=== PATIENT | male | born 1950 | race Caucasian/White ===

== ENCOUNTER 2018-07-29 09:16 | Inpatient (IN) | payer MEDICARE, BC ==
[2018-07-23 13:08] LABS: BASOPHILS # (AUTO) 0.1 X10'3 (0-0.2); BASOPHILS % (AUTO) 0.8 % (0-1); EOSINOPHILS # (AUTO) 0.5 X10'3 (0-0.9); LYMPHOCYTES # (AUTO) 1.9 X10'3 (1.1-4.8); LYMPHOCYTES % (AUTO) 18.2 % (21-51); MEAN CORPUSCULAR HGB CONC 33.3 g/dL (33.0-36.5); MEAN CORPUSCULAR VOLUME 87.1 FL (78-98); MEAN PLATELET VOLUME 8.3 FL (7.4-10.4); MONOCYTES # (AUTO) 0.6 X10'3 (0-0.9); MONOCYTES % (AUTO) 6.2 % (2-12); NEUTROPHILS # (AUTO) 7.2 X10'3 (1.8-7.7); NEUTROPHILS % (AUTO) 69.8 % (42-75); PRE OP HEMATOCRIT 44.1 % (42.0-52.0); PRE OP HEMOGLOBIN 14.7 g/dL (14.0-17.9); PRE OP PLATELET COUNT 199 X10'3 (140-440); RED BLOOD COUNT 5.06 X10'6 (4.70-6.10); RED CELL DISTRIBUTION WIDTH 14.7 % (11.5-14.5)
[2018-07-23 13:25] LABS: ALBUMIN 3.7 G/DL (3.4-5.0); ALKALINE PHOSPHATASE 93 IU/L (46-116); BLOOD UREA NITROGEN 22 MG/DL (7-18); CALCIUM 9.2 MG/DL (8.5-10.1); CHLORIDE 109 MMOL/L (99-107); PRE OP ALT 26 U/L (30-65); PRE OP ANION GAP 9 (8-16); PRE OP AST 16 U/L (10-37); PRE OP BILIRUB, TOTAL 0.3 MG/DL (0.0-1.0); PRE OP GLUCOSE 90 MG/DL (70-104); PRE OP POTASSIUM 3.8 MMOL/L (3.4-5.1); PRE OP SODIUM 141 MMOL/L (135-145); TOTAL CARBON DIOXIDE 23.5 MMOL/L (24-32); TOTAL PROTEIN 7.3 G/DL (6.4-8.2); eGFR 74 ML/MIN
[~2018-07-29] VITALS: Ht 188 cm; Wt 116.5 kg
[2018-07-29] VITALS (17 sets, daily range): BP systolic 120–171; BP diastolic 57–98
[~2018-07-29 09:16] MED LIST: ALBU8.5H8 IH; ASPI-529 PO; FLO0.4C PO; LISI-600 PO; VANCOMYCIN INJ 1000 MG in NORMAL SALINE 250ml IV.SOLN IV ONE; albuterol 2.5 MG/3 ML nebule NEB ONE; ceFAZolin 2gm in dextrose, iso 100 ML IV ONE; famotidine 20mg tablet PO ONE; ringers solution, lacted 1,000 ML IV SCH; tranexamic acid inj. 1,100 MG in normal saline 100ml IV soln 100 ML IV ONE
[2018-07-29] MEDS ORDERED: tranexamic acid inj. 1,100 MG in normal saline 100ml IV soln 100 ML IV ONE ×2 (09:30→20:20)
[2018-07-29] MEDS ORDERED: tetracaine 1% (10mg/ml) pres. free inj. ONE (14:42)
[2018-07-29] MEDS ORDERED: fentaNYL/PF 50MCG/1 ML 2ML syringe ONE (14:44)
[2018-07-29] MEDS ORDERED: MIDAZolam 5mg/5ml vial ONE (14:45)
[2018-07-29] MEDS ORDERED: ketorolac trometh. 30mg/ml inj. ONE (15:20)
[2018-07-29] MEDS ORDERED: ROPIVAcaine 0.5% (5mg/ml) 30ml vial ONE ×2 (15:20→15:39)
[2018-07-29] MEDS ORDERED: ringers solution, lacted 1,000 ML IV SCH (16:07)
[2018-07-29] MEDS ORDERED: morphine 4 MG/ML inj SYRINge IV PRN (16:10)
[2018-07-29] MEDS ORDERED: HYDROmorphone inj. 0.5 MG/0.5 ML DISP.SYRIN IV PRN ×2 (16:10→17:20)
[2018-07-29] MEDS ORDERED: ondansetron/PF 4mg/2ml inj IV PRN ×2 (16:10→17:20)
[2018-07-29] MEDS ORDERED: propofol inj 20 ML IV ONE ×2 (16:17)
[2018-07-29] MEDS ORDERED: bisacodyl 10mg suppository rectal RC PRN (17:20)
[2018-07-29] MEDS ORDERED: oxyCODONE IR 5mg (immed. release) tablet PO PRN ×2 (17:20)
[2018-07-29] MEDS ORDERED: diphenhydrAMINE 25mg capsule PO PRN ×2 (17:20)
[2018-07-29] MEDS ORDERED: magnesium hydroxide 30ml (MOM) UD suspension PO PRN (17:20)
[2018-07-29] MEDS ORDERED: acetaminophen 325mg tablet PO PRN (17:20)
[2018-07-29] MEDS ORDERED: HYDROmorphone 1 mg/ml syringe IV PRN (17:20)
[2018-07-29] MEDS ORDERED: dexamethasone sod phosphate 4mg/ml inj. ONE (17:40)
[2018-07-29] MEDS ORDERED: LIDOcaine 1%/PF 5ML 10 MG/ML VIAL ONE (17:40)
--- NOTE | 2018-07-29 17:42 | NUR ---
Received from OR via , accompanied by Anesthesiologist DR. ROD and report given by Anesthesiolgist. PATIENT ARRIVED TO PACU ON ORTHO BED, A&OX4, VSS CHARTED, 100% ON 2L NC, KEN DRESSING TO RIGHT KNEE WITH ON-Q, ICE PACK, SCD'S IN PLACE, 18 GAUGE PIV NOTED TO LEFT WRIST, IVF INFUSING ORDERED. WILL CONTINUE TO MONITOR.
--- NOTE | 2018-07-29 17:43 | NUR ---
SENSATION NOTED AT L1.
[2018-07-29] MEDS ORDERED: albuterol 2.5 MG/3 ML nebule NEB PRN (17:50)
[2018-07-29] MEDS: ROPIVAcaine 0.2%/PF PAIN PUMP 550 ML IJ SCH (18:07)
--- NOTE | 2018-07-29 18:09 | NUR ---
HEARING AIDES NOTED TO BILAT EAR
--- NOTE | 2018-07-29 18:52 | NUR ---
PATIENT TRANSFER CRITERIA MET. REPORT CALLED TO FOOD SERVICE COUNTER CLERK, ALL QUESTIONS AND CONCERNS ADDRESSED. VSS CHARTED, PATIENT A&OX4, SENSATION NOTED AT L1. KEN DRESSING TO RIGHT KNEE CDI, ON-Q PUMP INFUSING ORDERED. 18 GAUGE PIV INFUSING IVF ORDERED. SCD'S IN PLACE. TRANSFER TO [facility] [place] WITH ALL PERSONAL BELONGINGS.
[2018-07-29] MEDS ORDERED: vancomycin/NS 1 GM ADD-VANTAGE 250 ML IV SCH (20:00)
[2018-07-29] MEDS: potassium cl 20mEq in 1/2 NS 1,000 ML IV SCH (20:49)
[2018-07-29] MEDS: sennosides 8.6mg tablet PO SCH (20:53)
[2018-07-29] MEDS: acetaminophen 325mg tablet PO SCH (20:54)
[2018-07-29] MEDS: lisinopril 20mg tablet PO SCH (20:54)
[2018-07-29] MEDS: aspirin 81mg tablet.DR PO SCH (20:54)
[2018-07-30] MEDS: ceFAZolin 1GM/D5W- ADD-VANTAGE 50 ML IV SCH ×2 (00:46→08:24)
[2018-07-30] MEDS: potassium cl 20mEq in 1/2 NS 1,000 ML IV SCH ×3 (01:20→17:20)
[2018-07-30] MEDS: acetaminophen 325mg tablet PO SCH ×4 (02:00→20:42)
--- NOTE | 2018-07-30 04:42 | NUR ---
COLD PAC IS IRRITATING THE SYMPTOMS FOR THE PT'S HX OF TRANSVERSE MYOLITIS, WHICH CAUSES THE "KNEE JERK REACTION/MUSCLE SPASM" IN HIS RIGHT LEG WHEN COLD PAC IS APPLIED. PT PREFERS NOT TO HAVE THE COLD PACS PLACED.
--- NOTE | 2018-07-30 04:44 | NUR ---
PT REPORTED THAT HIS GLASSES WERE NOT IN THE ROOM AND HE REMEMBERS THEM IN THE RECOVERY ROOM. WILL CALL IN AM TO SEE IF WE CAN FIND THEM.
[2018-07-30 06:00] VITALS: BP 158/67
[2018-07-30 06:36] LABS: BASOPHILS % (AUTO) 0.3 % (0-1); EOSINOPHILS # (AUTO) 0.1 X10'3 (0-0.9); EOSINOPHILS % (AUTO) 0.6 % (0-6); HEMATOCRIT 36.4 % (42.0-52.0); HEMOGLOBIN 12.1 g/dl (14.0-17.9); LYMPHOCYTES % (AUTO) 11.1 % (21-51); MEAN CORPUSCULAR HEMOGLOBIN 29.1 PG (27.0-31.0); MEAN CORPUSCULAR HGB CONC 33.2 g/dL (33.0-36.5); MEAN CORPUSCULAR VOLUME 87.7 FL (78-98); MEAN PLATELET VOLUME 8.4 FL (7.4-10.4); MONOCYTES # (AUTO) 0.5 X10'3 (0-0.9); MONOCYTES % (AUTO) 5.6 % (2-12); NEUTROPHILS # (AUTO) 7.7 X10'3 (1.8-7.7); NEUTROPHILS % (AUTO) 82.4 % (42-75); PLATELET COUNT 203 X10'3 (140-440); RED BLOOD COUNT 4.15 X10'6 (4.70-6.10); RED CELL DISTRIBUTION WIDTH 14.7 % (11.5-14.5); WHITE BLOOD COUNT 9.3 X10'3 (4.5-11.0)
[2018-07-30 06:47] LABS: ANION GAP 8 (8-16); CHLORIDE 110 MMOL/L (99-107); SODIUM 144 MMOL/L (135-145); TOTAL CARBON DIOXIDE 26.2 MMOL/L (24-32)
[2018-07-30] MEDS: aspirin 325mg tablet PO SCH (08:25)
[2018-07-30] MEDS: tamsulosin 0.4mg capsule PO SCH (08:25)
[2018-07-30 10:00] VITALS: BP 150/75
--- NOTE | 2018-07-30 10:20 | NUR ---
Patient in room ORTHO 4006. I have received report from Birdie MARTÍNEZ and had the opportunity to ask questions and assume patient care.
[2018-07-30 14:00] VITALS: BP 116/62
[2018-07-30 18:00] VITALS: BP 150/75
--- NOTE | 2018-07-30 18:23 | NUR ---
Problems reprioritized. Patient report given, questions answered & plan of care reviewed with Leslie MARTÍNEZ.
--- NOTE | 2018-07-30 18:25 | NUR ---
PATIENT REPORT RECEIVED FROM STEPHEN MARTÍNEZ.
[2018-07-30] MEDS: celeCOXIB 100mg capsule PO SCH (20:39)
[2018-07-30] MEDS: lisinopril 20mg tablet PO SCH (20:41)
[2018-07-30] MEDS: sennosides 8.6mg tablet PO SCH (20:42)
[2018-07-30] MEDS: aspirin 81mg tablet.DR PO SCH (20:42)
[2018-07-30 22:00] VITALS: BP 141/69
[2018-07-31] MEDS: potassium cl 20mEq in 1/2 NS 1,000 ML IV SCH ×2 (01:20→09:20)
[2018-07-31] MEDS: acetaminophen 325mg tablet PO SCH ×2 (02:42→08:22)
[2018-07-31] MEDS: ROPIVAcaine 0.2%/PF PAIN PUMP 550 ML IJ SCH (02:43)
--- NOTE | 2018-07-31 05:50 | NUR ---
OFFERED PAIN MED FOR PHYSICAL THERAPY, PATIENT DID NOT WANT IT AT THIS TIME.
[2018-07-31 05:52] LABS: BASOPHILS % (AUTO) 0.5 % (0-1); EOSINOPHILS # (AUTO) 0.5 X10'3 (0-0.9); EOSINOPHILS % (AUTO) 4.4 % (0-6); HEMATOCRIT 34.6 % (42.0-52.0); LYMPHOCYTES # (AUTO) 1.5 X10'3 (1.1-4.8); LYMPHOCYTES % (AUTO) 14.9 % (21-51); MEAN CORPUSCULAR HGB CONC 34.6 g/dL (33.0-36.5); MEAN CORPUSCULAR VOLUME 86.9 FL (78-98); MEAN PLATELET VOLUME 8.3 FL (7.4-10.4); MONOCYTES % (AUTO) 9.8 % (2-12); NEUTROPHILS # (AUTO) 7.3 X10'3 (1.8-7.7); NEUTROPHILS % (AUTO) 70.4 % (42-75); PLATELET COUNT 195 X10'3 (140-440); RED BLOOD COUNT 3.98 X10'6 (4.70-6.10); RED CELL DISTRIBUTION WIDTH 14.3 % (11.5-14.5); WHITE BLOOD COUNT 10.4 X10'3 (4.5-11.0)
[2018-07-31 06:00] VITALS: BP 171/92
--- NOTE | 2018-07-31 06:10 | NUR ---
Patient in room ORTHO 4006. I have received report from Leslie Mendoza RN and had the opportunity to ask questions and assume patient care.
--- NOTE | 2018-07-31 06:53 | NUR ---
PATIENT REPORT GIVEN TO STEPHEN MARTÍNEZ.
[2018-07-31] MEDS: celeCOXIB 100mg capsule PO SCH (08:21)
[2018-07-31] MEDS: aspirin 325mg tablet PO SCH (08:22)
[2018-07-31] MEDS ORDERED: ASPI-1 PO (08:26)
[2018-07-31] MEDS: tamsulosin 0.4mg capsule PO SCH (09:04)
--- NOTE | 2018-07-31 09:20 | NUR ---
Received discharge orders. Pt lives in [place], awaiting to arrive between 10:00 and 11:[address] pt home.
--- NOTE | 2018-07-31 11:10 | NUR ---
Pt was wheeled downstairs to be driven home by his spouse. Pt is alert and oriented, no complaints of discomfort or pain at this time.
[2018-07-31] MEDS ORDERED: acetaminophen 325mg tablet PO PRN (17:20)
== END 2018-07-31 11:10 | disposition home or self-care (01) | DRG 470 ==
LOC: PAS IN 09:16 → EDSTATUS 13:15 → ORTHO 4S 19:00
PROVIDERS: ADMIT Orthopaedic Surgery; ATTEND Orthopaedic Surgery
PROC: 8E0Y0CZ Robotic Assisted Procedure of Lower Extremity, Open Approach (ICD-10-PCS; 2018-07-29)
PROC: 3E0T3BZ Introduction of Anesthetic Agent into Peripheral Nerves and Plexi, Percutaneous Approach (ICD-10-PCS; 2018-07-29)
PROC: 0SRC0J9 Replacement of Right Knee Joint with Synthetic Substitute, Cemented, Open Approach (ICD-10-PCS; principal; 2018-07-29 14:41)
DX: M17.11 Unilateral primary osteoarthritis, right knee (principal); D62 Acute posthemorrhagic anemia; G47.30 Sleep apnea, unspecified; I10 Essential (primary) hypertension; N40.0 Benign prostatic hyperplasia without lower urinary tract symptoms; J45.909 Unspecified asthma, uncomplicated; Z87.891 Personal history of nicotine dependence
CPT/HCPCS: 36415; 80051; 80053; 82948; 85025; 87070; 94760; 97110; 97116; 97162; 97530; A6455; A7000; C1713; C1758; C1776; G0378; J0690; J1100; J1885; J2001; J2250; J2704; J2795; J3010; J3370; J7030; J7120